=== PATIENT | female | born 1945 | race Caucasian/White ===

== ENCOUNTER → 2017-07-17 | Outpatient (CLI) | payer OTHER ==
[~2017-07-17] MED LIST: ASPIR 8181 MG PO; CENTRUM SILVER1 EAC4 PO; CREON DR 24,001 EACH PO; FENTANYL PA50 MCG/HR TRANSDERM; HYDROCODONE-APA1 TA1 PO; HYDROXYZINE HCL25 M2 PO; LASIX 40 MG TAB40 M2 PO; LEVOTHYROXIN0.112 M1 PO; LEXAPRO 10 MG T10 M1 PO; LIBRAX PO; LIDODERM 5%1 PATC1 TRANSDERM; LINZESS145 MCG PO; NORVASC10 MG PO; ONDANSETRON HCL4 M2 PO; PROTONIX40 M1 PO; RESTORIL15 MG PO; XANAX 0.25 MG0.25 MG PO
== END ==
LOC: RAD 13:50
DX: M75.111 Incomplete rotator cuff tear or rupture of right shoulder, not specified as traumatic (principal); M40.294 Other kyphosis, thoracic region; M25.80 Other specified joint disorders, unspecified joint; M51.37 Other intervertebral disc degeneration, lumbosacral region; M47.816 Spondylosis without myelopathy or radiculopathy, lumbar region; M75.42 Impingement syndrome of left shoulder